=== PATIENT | male | born 1985 | race Two or more races ===

== ENCOUNTER 2024-11-22 14:21 | Emergency (ER) | payer SELFPAY ==
[~2024-11-22] VITALS: Ht 175.3 cm; Wt 70.0 kg
[2024-11-22 14:24] VITALS: O2SAT 100
[2024-11-22 15:29] VITALS: BP 153/79; PULSE 82; RESP 14; TEMP 36.7; O2SAT 100
== END 2024-11-23 ==
LOC: ER 11-23 06:11
DX: T63.441A Toxic effect of venom of bees, accidental (unintentional), initial encounter (principal); E78.00 Pure hypercholesterolemia, unspecified; I46.9 Cardiac arrest, cause unspecified; Z91.030 Bee allergy status; Y92.89 Other specified places as the place of occurrence of the external cause
CPT/HCPCS: 99283